=== PATIENT | male | born 1950 | race Caucasian/White ===

== ENCOUNTER → 2025-03-13 12:46 | Outpatient (REF) | payer MEDICARE, OTHER, SELFPAY ==
[2025-03-13 13:55] LABS: Hematocrit 39.9 % (39.0-52.0); Hemoglobin 14.0 g/dL (13.0-18.0); Mean Corp Hgb Conc. 35.1 g/dL (33.0-37.0); Mean Corpuscular Volume 86.2 fL (80.0-94.0); Nucleated Red Blood Cells % 0 % (-); Platelet Count 204 10^3/uL (130-400); Red Cell Dist. Width 13.2 % (11.5-14.5)
[2025-03-13 14:07] LABS: INR 1.25; PT 16.2 Sec (11.4-14.6)
[2025-03-13 15:32] LABS: ALT (SGPT) 35 U/L (0-50); AST (SGOT) 25 U/L (17-59); Albumin 4.5 g/dl (3.5-5.0); Alkaline Phosphatase 80 U/L (38-126); Blood Urea Nitrogen 15 mg/dl (9-20); Calcium 9.3 mg/dl (8.4-10.2); Carbon Dioxide 26 mmol/L (22-30); Chloride 104 mmol/L (98-107); Glucose 154 mg/dl (70-99); Magnesium 1.7 mg/dl (1.6-2.3); Potassium 4.4 mmol/L (3.5-5.1); Sodium 137 mmol/L (135-145); Total Protein 7.2 g/dl (6.3-8.2); eGFR > 60.00
== END ==
LOC: SDSPAT 12:46
PROVIDERS: ATTENDING PHYSICIAN Internal Medicine Cardiovascular Disease; FAMILY PHYSICIAN Family Medicine; OTHER PHYSICIAN Internal Medicine Cardiovascular Disease
DX: I48.91 Unspecified atrial fibrillation (principal)
CPT/HCPCS: 36415; 75572; 80053; 83735; 85025; 85610; 86850; 86900; 86901; 93005; Q9967

== ENCOUNTER 2025-03-29 05:52 | Day surgery (SDC) | payer MEDICARE, OTHER, SELFPAY ==
[2025-03-13 13:30] VITALS: BMI 41.9
[2025-03-29] VITALS (11 sets, daily range): BP systolic 89–133; BP diastolic 47–92; BMI 41.5
[2025-03-29 06:56] LABS: Glucose - Point of Care 130 mg/dl (70-99)
--- NOTE | 2025-03-29 07:45 | ITS.CL.ABL ---
[employer] - Ablation
Ablation
Procedure Report:
Primary Interface Control Officer: Dr. Talib Bernard
Procedure Date: 03/29/2025
Patient History:
Patient is a pleasant 74-year-old male with a past medical history significant for colonic AVM, anxiety, mixed hyperlipidemia, psoriasis, moderate persistent asthma, sleep apnea on BiPAP, hypertension, and symptomatic persistent atrial fibrillation.
See H&P for complete details.
Indication:
Symptomatic persistent atrial fibrillation
Arrhythmia Specific History:
Prior Medical Therapies for Rate and Rhythm Control:
X Beta-chano
[ ] Calcium channel-chano
[ ] Amiodarone
[ ] Dronederone
[ ] Sotalol
[ ] Flecainide
[ ] Dofetilide
[ ] Options limited by bradycardia
[ ] Options limited by comorbid renal disease
Prior Procedural Therapies for AF/AFL:
X Cardioversion
[ ] Pulmonary Vein Isolation
[ ] Posterior Wall Isolation
[ ] Additional lines (Specify)
[ ] Surgical Soto-MAZE or PVI (Specify)
Procedure Performed:
X AF ablation procedure (55771) -- includes LA/CS pacing, trans-septal, 3D mapping, + ICE
[ ] +IV drug (27384)
[ ] +Other Arrhythmia (95398)
X +Other AF Line/ablation (05098)x2 -- floor line roof line, posterior wall isolation
Risks and expected recovery has been explained in detail. Alternative options have been explored, and in a shared-decision making fashion we have decided that this was the most appropriate procedure.
Method
NPO status confirmed. Grounding pad applied. Defibrillator pads applied. Continuous surface ECG, pulse oximetry, and blood pressure were monitored. Procedure was performed under general anesthesia, with anesthesia services.
Both groins were clipped, prepped with Chloraprep, and draped in sterile fashion. Time out was called. Local anesthesia administered with bupivacaine. The right femoral vein was accessed for catheter placement, using ultrasound guidance (images
saved to record), micro-puncture needle/wire, and modified seldinger technique. 3 sheaths were placed. The following catheters were used:
[ ] Tacticath SE (D/F Curve) ablation catheter
X Viewflex 9Fr ICE catheter
X Inquiry decapolar 6Fr diagnostic catheter
[ ] CRD Hex 6Fr
X FlexCath Contour 10 Fr with PulseSelect PFA Catheter
X Advisor HD Grid Mapping Catheter, SE
[ ] AcusHomeSav AcuNav 8 Fr ICE catheter
[ ]Other: [ ]
Intracardiac ultrasound (ICE) was carefully advanced into the right atrium to guide sheath placement over a J-wire, catheter placement, guide trans-septal puncture, identify potential complications, identify anatomic structures and ensure proper
contact between ablation catheter and tissue. A trace basal LV pericardial effusion was noted on intracardiac ultrasound at the initiation of procedure. This remained unchanged throughout the procedure and a case completion.
Heparin was given prior to trans-septal puncture. Heparin was given to achieve and maintain a target ACT of 300-400 seconds throughout the procedure.
Trans-septal access was performed under ICE guidance. The trans-septal puncture was performed with a SafeSept wire through a Brockenbrough needle assembly through the steerable sheath. The wire was visualized as it entered the LSPV and system
advanced under ICE guidance and fluoroscopy into the LA. The Brockenbrough needle assembly, SafeSept wire and sheath dilator were removed under negative pressure. LA pressure was measured and recorded.
ICE and 3D mapping was performed to identify relevant cardiac structures. A careful 3D map was created to assess for regions of low-voltage and abnormal electrogram signals using HD grid mapping catheter and PulseSelect catheter. Additional mapping
was performed as outlined below.
Prior to ablation, glycopyrrolate was provided. PulseSelect catheter was advanced over J-wire to the ostium of each vein. Pulmonary vein isolation was performed with ostial and antral lesions in a circumferential manner. Contact was visualized via
EAM, ICE, fluoroscopy, and EGM signals.
After accomplishing pulmonary venous isolation, mapping identified additional areas likely to be extra PV contributors to atrial fibrillation. These areas demonstrated patchy low voltage as well as complex fractionated electrograms. These areas can
be sites for the formation of rotors which can drive and maintain atrial fibrillation. These areas are known to be significant contributors to initiation and perpetuation of atrial fibrillation.
Additional energy applications/additional ablation sets targeted extra PV contributors to atrial fibrillation.
Targets for additional PFA ablation included: LA posterior wall targeted with pulsed electric field energy isolating the posterior wall of the left atrium. Posterior wall isolation was performed by anchoring the J-wire within the pulmonary vein and
placing the PulseSelect catheter in contact posterior wall as visualized by aforementioned methods.
After ablation of the posterior wall, targets remained including:
- Inferior LA floor
- Anterior LA roof
- The ridge of tissue between the left atrial appendage and the left sided pulmonary veins (Ligament of [place])
These areas were ablated using pulsed electric field energy eliminating the extra PV contributors to atrial fibrillation.
Following completion of ablation lesions, sinus rhythm was restored with a 200J synchronized DCCV. Following cardioversion, patient was noted to be in atrial flutter 270 ms cycle length appearing left atrial in nature. Attempted entrainment
terminated the tachycardia. No further arrhythmias induced with electrophysiology study. A post-ablation voltage/activation map was performed in sinus rhythm. Entrance and exit block were confirmed for each vein and the posterior wall.
Catheter and sheath were removed from the left atrium and post-ablation intracardiac echo evaluation was consistent with pre-ablation with no changes and no change to trace basal LV Pericardial effusion and there is no left atrial thrombus or left
ventricle thrombus seen. Electrophysiology study was performed. No arrhythmias were induced. Hemostasis was obtained with Vascade for each sheath and with manual pressure. Protamine was used for reversal.
Estimated Blood Loss
10 mL
Complications
None
Fluoroscopy: 3.3 minutes; 43.92 mGy; DAP 4.58
LA Pressure: Pre 8 mmHg, post 13 mmHg
Baseline Intervals:
Rhythm: AF
QRS: 81 ms
Post-Procedure Intervals:
UT: 170 ms
QRS: 85 ms
QT: 412 ms
QTc: 407 ms
A-A: 1024 ms
R-R: 1024 ms
AVWB: 350 ms
AVNERP: 600/210 ms
AERP: 600/210 ms
Recommendations
- Bedrest with straight-leg precautions as ordered
- Anticipate same day discharge if patient meeting clinical metrics
- Resume home medications as indicated
- Ok to resume anticoagulation tonight if patient and groin sites stable
- Plan for follow-up in office as scheduled
Lino Stark, , FACC, FHRS
Clinical Cardiac Graduate Fellow
cc: Dr. Talib Bernard; Dr. Lucia Jones
[2025-03-29 08:58] LABS: ACT-LR - POC 355 Seconds (116-155)
[2025-03-29 09:16] LABS: ACT-LR - POC 339 Seconds (116-155)
[2025-03-29 09:43] LABS: ACT-LR - POC 390 Seconds (116-155)
[2025-03-29 10:15] LABS: ACT-LR - POC 284 Seconds (116-155)
--- NOTE | 2025-03-29 13:19 | W.PN.UPDATE ---
Update Note
Progress Note Update
74 yo WM s/p PVI (same day). He denies cp, sob, jack diet, voiding, R fem site Vascade c/d/i, no HT, soft, EKG SR with PAC's. He will resume Eliquis tonight and continue metoprolol. Activity restrictions reviewed. He will f/u Dr. Bernard in 3 mo. He
is for d/c home after 115p.
== END 2025-03-29 13:15 | disposition home or self-care (01) ==
LOC: CATH 05:52
PROVIDERS: ATTENDING PHYSICIAN Internal Medicine Cardiovascular Disease; FAMILY PHYSICIAN Family Medicine; OTHER PHYSICIAN Internal Medicine Cardiovascular Disease
DX: I48.19 Other persistent atrial fibrillation (principal); E11.9 Type 2 diabetes mellitus without complications; E78.2 Mixed hyperlipidemia; F32.A Depression, unspecified; F41.9 Anxiety disorder, unspecified; G25.0 Essential tremor; G47.33 Obstructive sleep apnea (adult) (pediatric); I11.0 Hypertensive heart disease with heart failure; I25.10 Atherosclerotic heart disease of native coronary artery without angina pectoris; I49.1 Atrial premature depolarization; I50.32 Chronic diastolic (congestive) heart failure; J45.40 Moderate persistent asthma, uncomplicated; K76.0 Fatty (change of) liver, not elsewhere classified; M19.90 Unspecified osteoarthritis, unspecified site; M85.80 Other specified disorders of bone density and structure, unspecified site; Z79.01 Long term (current) use of anticoagulants; Z79.899 Other long term (current) drug therapy; Z86.0100 Personal history of colon polyps, unspecified; Z86.711 Personal history of pulmonary embolism; Z87.442 Personal history of urinary calculi; Z88.1 Allergy status to other antibiotic agents; Z88.5 Allergy status to narcotic agent; Z88.8 Allergy status to other drugs, medicaments and biological substances; Z90.49 Acquired absence of other specified parts of digestive tract; Z90.79 Acquired absence of other genital organ(s); Z98.42 Cataract extraction status, left eye; E66.01 Morbid (severe) obesity due to excess calories; Z68.41 Body mass index [BMI] 40.0-44.9, adult; Z96.652 Presence of left artificial knee joint; Z91.041 Radiographic dye allergy status; Z91.030 Bee allergy status
CPT/HCPCS: C1732; C1894 ×2; C1730; C1769; C1766; 82962; 85347; 86900; 86901; 93005; 93656; 93657; C1760

== ENCOUNTER 2025-03-31 20:55 | Inpatient (IN) | payer MEDICARE, OTHER, SELFPAY ==
[2025-03-31] VITALS (10 sets, daily range): BP systolic 98–133; BP diastolic 58–72; PULSE 2–62; BMI 42.6; BMI 41.2
[2025-03-31 18:57] LABS: Hematocrit 34.7 % (39.0-52.0); Hemoglobin 11.7 g/dL (13.0-18.0); Mean Corp Hgb Conc. 33.7 g/dL (33.0-37.0); Mean Corpuscular Volume 90.4 fL (80.0-94.0); Nucleated Red Blood Cells % 0 % (-); Platelet Count 170 10^3/uL (130-400); Red Cell Dist. Width 14.1 % (11.5-14.5)
[2025-03-31 19:10] LABS: ALT (SGPT) 24 U/L (0-50); AST (SGOT) 33 U/L (17-59); Albumin 4.0 g/dl (3.5-5.0); Alkaline Phosphatase 73 U/L (38-126); Blood Urea Nitrogen 19 mg/dl (9-20); Calcium 8.8 mg/dl (8.4-10.2); Carbon Dioxide 28 mmol/L (22-30); Chloride 105 mmol/L (98-107); Estimated Creatinine Clearance 108 ml/min; Glucose 126 mg/dl (70-99); Potassium 4.0 mmol/L (3.5-5.1); Sodium 138 mmol/L (135-145); Total Protein 6.3 g/dl (6.3-8.2); eGFR > 60.00
[2025-03-31 19:26] LABS: Troponin I 1.810 ng/ml
--- NOTE | 2025-03-31 19:50 | ED.GENMED ---
History of Present Illness
General
Chief Complaint: Chest Pain
Time Seen by Provider: 03/31/25 19:36
Nursing documentation reviewed up to this point in time: agreed with
History of Present Illness
History of Present Illness:
74-year-old male presents to the ER for evaluation of chest pain and shortness of breath with exertion that has been present since yesterday. Patient underwent ablation on 03/29/2025 for treatment of atrial fibrillation. He states a feeling of
difficulty taking a deep breath. He does use nebulizers for his prior history of asthma but has not used this medication since this morning. He has not had his Eliquis since this morning. He denies nausea vomiting or diarrhea. He does report
some mild abdominal bloating but has been having regular bowel movements. He denies any urinary discomforts. Patient reports that the pressure is worse with exertion. He also has had a cough which is scantly productive. No fever. He has not
tried taking any medications for his symptoms.
Review of Systems
Review of Systems
Allergies reviewed?: Yes
Phy Exam
Physical Exam
Physical Exam:
Patient is awake, alert, appears in no acute distress, obese, head is NCAT, PERRL, EOMI mucous membranes moist, conjunctiva pink, heart regular rate and rhythm without murmurs or ectopy, lungs are clear to auscultation without wheezes rales or
rhonchi, no JVD, abdomen is soft and nontender on palpation, extremities without edema, GCS is 15
Scores
Heart Score for Chest Pain Patients
STEMI patient?: No
History: Slightly or Non-Suspicious
ECG: Normal
Age: >/= 65 years
Risk Factors: >/= 3 Risk Factors or History of CAD
Troponin: >/= 3 x Normal Limit
Heart Score for Chest Pain Patients: 6
Heart Score Risk: 20.3% MACE over next 6 weeks
Course
Orders/Labs/Results
Orders:
Orders
03/31/25 Breakfast
Sodium, 2 Gram
At Your Request: Full Participation
Does patient need a safe tray?: No
Low Sodium: Cholesterol Lowering
03/31/25 17:14
Electrocardiogram (*1) Urgent
Reason for Study: Chest Pain
EKG- Treatment ONCE
03/31/25 18:40
CXR2 [CR Chest - 2 Views ] Urgent
Comment:
Reason For Exam: chest pain
03/31/25 18:48
Complete Blood Count/With Diff Urgent
Comprehensive Metabolic Panel Urgent
Ferritin Urgent
Comment: ADD ON
Folate Urgent
Comment: ADD ON
Iron Urgent
Comment: ADD ON
NT-proBNP Urgent
Total Iron Binding Urgent
Comment: ADD ON
Troponin I Urgent
Vitamin B12 Urgent
Comment: ADD ON
03/31/25 19:43
Heparin 4,000 units IV NOW STA
Ipratropium/Albuterol Sulfate [Duoneb] 3 ml INH R NOW ONE
Nursing to Place Non Medication Order As Directed
Physician Order: PTT 6 hours after initial start of Heparin infusion
Above order entered?: Yes
03/31/25 19:45
Heparin 96614 Units/250 ml 25,000 units in 250 ml IV PER PROTOCOL
Weight to be used for heparin protocol in kilograms (kg):: 128.7
Protocol:: Cardiac Tx/Acute Coronary
PTT Goal Range to be used:: PTT 73 to 111 seconds
Order type:: Initial
INITIAL Infusion Dose (UNITS/KG/hr) & then follow protocol:: 12 units/kg/hr
Infusion Dose in UNITS/hr & then follow protocol (UNITS/hr):: 1,000
INFUSION RATE in mL/hr & then follow protocol (mL/hr):: 10
PTT less than or equal to 64 seconds:: Increase rate by 200 units/hr (+ 2 mL/hr)
PTT 64.1 to 72.9 seconds:: Increase rate by 100 units/hr (+ 1 mL/hr)
PTT 73 to 111 seconds:: Target Range. No change in rate.
PTT 111.1 to 130.9 seconds:: Decrease rate by 100 units/hr (- 1 mL/hr)
PTT 131 to 199.9 seconds:: HOLD for 1 hr. Then decrease rate by 200 units/hr (- 2 mL/hr)
PTT greater than or equal to 200 seconds:: HOLD for 2 hrs & Notify Provider. Then decrease by 200 units/hr (-
2 mL/hr)
Lab follow-up:: Each change, PTT q6h until 2 consecutive are therapeutic. Then PTT
daily.
03/31/25 19:57
PTT Urgent
03/31/25 20:32
Consult Cardiology [CARDIOLOGY CONSULT] Urgent
Consulting Provider: Filiberto Guadarrama
Was physician already notified: Yes
03/31/25 20:39
Admit/Transfer Patient As Directed
Co-Sign Provider:
Level of Care: Inpatient admission
Assign to:: IVU
Physician / Group: Shiva
Diagnosis: NSTEMI
Reason for Hospitalization: heparin drip
Expected length of stay greater than two midnights?: Yes
ELOS- Estimated Length of Stay in days: 3
I certify the patient meets the requirements for IP care: Yes
PRN Pain Medication Management As Directed
May give lesser potent ordered pain med per pt: Yes
preference::
Protocol:: Medication orders for pain may be administered in a
manner that supports deferring to patient preference
when the pt is:
- Requesting an ordered lesser potent pain medication.
Least to most potent pain medications are defined
as: acetaminophen < NSAID < tramadol < opioids
(morphine, oxycodone, hydromorphone).
- Requesting a lesser dose of the same medication IF
ORDERED.
- Requesting a less intrusive route of administration
if both routes are prescribed by the provider (PO <
IV).
03/31/25 20:43
Code Status As Directed
Resuscitation Status: Full Code
03/31/25 22:06
COVID-19 Antigen Urgent
Source: Nasal Swab
Troponin I Q6H
03/31/25 22:34
Acetaminophen [Tylenol] 650 mg PO Q4HPRN PRN
Montelukast Sodium [Singulair] 10 mg PO HS
Nitroglycerin Sublingual [Nitrostat (Sublingual)] 0.4 mg SL [id number] PRN
03/31/25 22:34
Echo 2D MMode Color/Doppler Routine
Reason for Study: chest pain
Heparin Protocol- PTT Orders As Directed
PTT per Heparin protocol: -Obtain CBC and baseline PTT - if not already collected.
-Obtain PTT 6 hours from start of infusion. Then, every 6 hours until 2 consecutive
PTT's are therapeutic. Then, PTT Daily.
-With each rate change, obtain PTT every 6 hours until 2 consecutive PTT's are
therapeutic. Then, PTT Daily.
Activity As Directed
Activity Level: Out of Bed-Early Mobility
With Assistance
I&O [Intake/ Output] As Directed
Frequency: q12h
Notify MD As Directed
Notify physician if: PTT is greater than or equal to 200.
Vital Signs As Directed
Frequency: Per unit guidelines
Weight As Directed
Frequency: Daily
04/01/25 02:25
PTT Urgent
04/01/25 03:50
Troponin I Q6H
04/01/25 Breakfast
NPO
Allow oral meds: Yes
Allow clear liquids: 4hrs prior to procedure
Comment: may have unrestricted clear liquid up to 4 hrs prior to scheduled procedure
Basic Metabolic Panel IN AM
Complete Blood Count/No Diff IN AM
Hgba1c [Glycohemoglobin (HgbA1c)] IN AM
Lipid Profile [Cardiovascular Evaluation] IN AM
04/01/25 08:00
Albuterol Nebs [Ventolin Nebules] 2.5 mg INH R QID
Budesonide [Pulmicort] 0.5 mg INH BID
Metoprolol Xl [Toprol Xl] 50 mg PO DAILY
Pantoprazole [Protonix] 40 mg PO DAILY
Sertraline HCl [Zoloft] 75 mg PO DAILY
Tiotropium [place] 2.5 Mcg [Spiriva Respimat 2.5 Mcg] 2 puff INH R DAILY
04/01/25 09:50
Troponin I Q6H
04/01/25 18:00
Atorvastatin [Lipitor] 20 mg PO QPM
04/02/25 06:00
Complete Blood Count/No Diff Q2D
Comment: notify provider: Platelet count < 130,000 or decrease by 50% from baseline
04/02/25 11:00
DC Protocol for Telemetry ONCE
04/04/25 06:00
Complete Blood Count/No Diff Q2D
Comment: notify provider: Platelet count < 130,000 or decrease by 50% from baseline
04/06/25 06:00
Complete Blood Count/No Diff Q2D
Comment: notify provider: Platelet count < 130,000 or decrease by 50% from baseline
04/08/25 06:00
Complete Blood Count/No Diff Q2D
Comment: notify provider: Platelet count < 130,000 or decrease by 50% from baseline
04/10/25 06:00
Complete Blood Count/No Diff Q2D
Comment: notify provider: Platelet count < 130,000 or decrease by 50% from baseline
04/12/25 06:00
Complete Blood Count/No Diff Q2D
Comment: notify provider: Platelet count < 130,000 or decrease by 50% from baseline
04/14/25 06:00
Complete Blood Count/No Diff Q2D
Comment: notify provider: Platelet count < 130,000 or decrease by 50% from baseline
04/16/25 06:00
Complete Blood Count/No Diff Q2D
Comment: notify provider: Platelet count < 130,000 or decrease by 50% from baseline
Abnormal Lab Results
03/31/25
18:48
RBC 3.84 L 10^6/uL
(4.70-6.10)
Hgb 11.7 L g/dL
(13.0-18.0)
Hct 34.7 L %
(39.0-52.0)
Abs Immat Gran (auto) 0.1 H 10^3/uL
(0-0.05)
Absolute Neuts (auto) 7.7 H 10^3/uL
(1.4-6.5)
Absolute Lymphs (auto) 1.1 L 10^3/uL
(1.2-3.4)
Absolute Monos (auto) 1.1 H 10^3/uL
(0.1-0.6)
Neutrophils % 76.3 H %
(42.2-75.2)
Lymphocytes % 11.0 L %
(20.5-51.1)
Monocytes % 10.5 H %
(1.7-9.3)
Glucose 126 H mg/dl
(70-99)
Iron 34 L ug/dl
(49-181)
% Saturation 10 L %
(20-50)
Total Bilirubin 2.0 H mg/dl
(0.2-1.3)
Troponin I 1.810 H* ng/ml
03/31/25 18:48
03/31/25 18:48
Electrolytes within normal limits. Hemoglobin slightly decreased compared to prior value of 14 from 03/13/2025. White blood count normal. Troponin elevated at 1.8
Vital Signs
Initial and Last Documented VS:
Initial Vital Signs
Temp Pulse Resp BP Pulse Ox
98.2 F 62 16 133/72 97
03/31/25 17:13 03/31/25 17:13 03/31/25 17:13 03/31/25 17:13 03/31/25 17:13
Last Documented Vital Signs
Temp Pulse Resp BP Pulse Ox
97.7 F 67 18 108/60 95
03/31/25 22:50 03/31/25 22:08 03/31/25 22:50 03/31/25 22:08 03/31/25 23:15
MDM/Problems Addressed
Differential Diagnosis Includes:
Differential diagnosis to consider but not limited to postprocedural discomfort, ACS, along with other etiologies considered
Chronic conditions affecting care:
Asthma, A-fib,Hyperlipidemia, hypertension
*Radiology
Radiology exam reviewed: preliminary read by ED provider (I independently viewed and interpreted two-view chest x-ray showing no infiltrates, top normal cardiac silhouette)
*Pulse Oximetry
SaO2: 95
Oxygen Mode of Delivery: Room air
Patient hypoxic: no
*EKG
Interpreted by ED Provider?: Yes (I independently viewed and interpreted twelve-lead EKG showing normal sinus rhythm, no ectopy, rate 65, leftward axis, no ST elevation, this is a borderline low voltage EKG without evidence for acute ischemia
similar compared to prior from 03/29/2025)
*Automatic Dispenser Mechanic Interpretation
Rate: normal (I independently viewed and interpreted rhythm strip showing normal sinus rhythm, no ectopy)
*Critical Care Note
Total Time (30-74mins, 75-104mins- exclusive of procedures): See critical care note
Update Note
Update Note:
I discussed with patient and present bedside need for admission for anticoagulation and trending of troponin, although troponin is likely related to recent procedure. Procedure had been performed by Dr. Lou. I reviewed full patient
presentation and EKG with on-call beer brewer for the group, Dr. Guadarrama, who would agree with plan for anticoagulation and admission to the hospitalist. I reviewed full patient presentation with the hospitalist who accepts patient for admission.
Critical care statement: A total of 30 minutes of critical care time was provided for this patient. This includes management of unstable vital signs, evaluation of the patient at bedside, reviewing the patient's pertinent medical records, discussion
with consultants, review of old EKGs and review of pertinent medical records. This time with separate from time utilized to perform the aforementioned documented procedures
ED Attending Note
-
Portions of this chart may have been created with voice recognition software.� Occasional wrong word or��sound alike� substitutions may have occurred due to the inherent limitations of voice recognition software.
Discharge Plan
Departure
Patient Disposition: Admit
Date of Disposition: 03/31/25
Time of Disposition: 20:31
Presentation/result/management discussed w/ accepting MD/DO: Hospitalist
Discharge Problem:
Chest pain, Elevated troponin I level
Interventions
Interventions:
*Risk Screen - Suicide Last Done: 03/31/25 17:13
*General Assessment Last Done: 03/31/25 18:32
*Neglect/Abuse Screening Last Done: 03/31/25 17:13
*ED- Fall Risk Assessment Last Done: 03/31/25 18:32
*ED COVID-19 Vaccine History Last Done: 03/31/25 18:32
*Nursing Disposition Last Done: 03/31/25 22:19
ED- Cardiac Assessment Last Done: 03/31/25 18:36
Discharge Date and Time
Discharge Date/Time: 03/31/25 22:20
[2025-03-31] MEDS: DUONEB 3 ML INH (20:05)
[2025-03-31 20:19] LABS: APTT 32.9 Sec (23.4-35.0)
[2025-03-31] MEDS: HEPARIN 25000 UNITS/250 ML IV (20:22)
[2025-03-31] MEDS: HEPARIN 4000 UNITS IV (20:22)
--- NOTE | 2025-03-31 20:46 | HPS.HSE ---
Addendum entered and electronically signed by Ashok Shannon DO 03/31/25 21:51:
Patient seen and examined independently. Agree with findings and plan as set forth by Kathe Hinton PA-C.
Patient is a 74y M with PMH significant for hypertension, DM-II, asthma and A-Fib s/p recent PVI ablation who presents to ED complaining of chest pain / pressure and SOB. Ablation done on 03/29. Patient reports some chest heaviness yesterday -
but much worse today. Patient denies any prior h/o FL, CVA, etc.
He denies any recent cough, fevers / chills, etc.
Ass:
Chest Pain / ACS / NSTEMI
Atrial Fibrillation s/p Ablation (03/29)
Chronic HFpEF
Normocytic Anemia
Benign Hypertension - Currently Hypotensive
DM-II
Asthma
Anxiety / Depression
Morbid Obesity due to excess calories
CHANEL on BiPAP
Plan:
Admit for further evaluation and treatment.
EKG without evident ischemia.
Initial troponin = 1.810 - s/p PVI ablation 2 days ago.
Continue IV heparin infusion.
ASA 324mg now and then daily.
Follow troponin to peak.
Follow for changes in chest heaviness symptoms.
Cardiology evaluation for additional recommendations.
Continue usual inhaled medication regimen.
Continue usual Lasix dose for now, but change to IV.
Follow I/Os, daily weights, etc.
Hold losartan acutely given borderline BP.
Continue nightly BiPAP.
Original Note:
Family Physician
-
Family Physician: NOT KNOW UNKNOWN - PT DOES
Chief Complaint
-
Chest Tightness and Shortness of Breath
History of Present Illness
Patient is a 74 y/o male past medical history of essential hypertension, hyperlipemia, diabetes mellitus, asthma, chronic heart failure, and atrial fibrillation with PVI ablation on Mar 29 who presents with chest tightness and shortness of
breath. Patient states following the procedure he was doing fairly well except for feeling a little groggy. The next morning, yesterday, he developed chest tightness across the middle of his chest. He reports the chest tightness and pressure have
gotten progressively worse. He reports associated shortness of breath particularly dyspnea on exertion. He denies lower extremity edema.
Medical History
Past Medical History
Past Medical History: Reports Other
Additional Past Medical History:
Paroxysmal Atrial Fibrillation
Chronic HFpEF
Diabetes Mellitus, Type II
Essential Hypertension
Hyperlipidemia
Asthma / Reactive Airway Disease
Pulmonary Embolism
Anxiety / Depression
GERD
Gilbert's
Prostate Cancer
Obstructive Sleep Apnea
Morbid Obesity due to Excess Calories
Past Surgical History: Reports Other
Additional Past Surgical History:
Left Knee Replacement
Right Ankle ORIF
Prostatectomy
Social History
Tobacco: Non-smoker
Alcohol: None
Drug: None
Family History
Family History: Not pertinent
Allergies / Home Medications
Allergies reflects when Allergies were last updated in [facility].
Home Medications with original date entered in [facility]
Allergy/Medication List:
Allergies
Allergy/AdvReac Type Severity Reaction Status Date / Time
codeine Allergy Severe CHEST Verified 03/31/25 18:32
PAIN/
FL-LIKE/CARDIAC
SYMPTOMS
erythromycin base Allergy Severe RENAL Verified 03/31/25 18:32
FAILURE/SEVERE
N/V
Iodinated Contrast Media Allergy Severe Hives Verified 03/31/25 18:32
adhesive Allergy BLISTERS Verified 03/31/25 18:32
bee venom protein (honey bee) Allergy EDEMA Verified 03/31/25 18:32
levofloxacin Allergy PRURITUS Verified 03/31/25 18:32
Opioids - Morphine Analogues Allergy CHEST Verified 03/31/25 18:32
PAIN/FL-LIKE/CARDIAC
SYMPTOMS
Home Medications
amoxicillin 500 mg capsule 2,000 mg PO PRN PRN PRE-DENTAL VISIT 03/08/25
apixaban 5 mg tablet (Eliquis) 5 mg PO BID 03/08/25
arformoterol 15 mcg/2 mL solution for nebulization 15 mcg inhalation BID 03/08/25
atorvastatin 20 mg tablet 20 mg PO QPM 03/08/25
budesonide 0.5 mg/2 mL suspension for nebulization 0.5 mg inhalation BID 03/08/25
calcium 600 mg (as carbonate)-vitamin D3 20 mcg (800 unit) tablet 1 tab PO DAILY 03/08/25
furosemide 20 mg tablet (Lasix) 20 mg PO DAILY 03/08/25
losartan 25 mg tablet 25 mg PO DAILY 03/08/25
mecobalamin (vitamin B12) 1,000 mcg chewable tablet 1,000 mcg PO DAILY 03/08/25
metoprolol succinate 50 mg tablet,extended release 24 hr 50 mg PO DAILY 03/08/25
montelukast 10 mg tablet 10 mg PO HS 03/08/25
multivit,Ca,min-iron 8 mg-folic acid 200 mcg-lycopene 600 mcg tablet (Men's Daily Multivitamin) 1 tab PO DAILY 03/08/25
pantoprazole 40 mg tablet,delayed release 40 mg PO DAILY 03/08/25
revefenacin 175 mcg/3 mL solution for nebulization (Yupelri) 175 mcg inhalation DAILY 03/08/25
sertraline 50 mg tablet 75 mg PO DAILY 03/08/25
tadalafil 20 mg tablet (Cialis) 20 mg PO DAILYPRN PRN ED 03/08/25
Review of Systems
-
A 12 point ROS was completed and negative except as noted: Yes
Constitutional: Denies Fever
Respiratory: Reports Trouble Breathing
Cardiac: Reports Chest Pain
Physical Exam
Vital Signs
Vital Signs
Temp Pulse Resp BP Pulse Ox
98.8 F 67 25 104/64 95
03/31/25 18:36 03/31/25 20:30 03/31/25 20:30 03/31/25 20:00 03/31/25 20:30
Physical Exam
General: Comfortable and Conversant
HEENT: Anicteric and Moist mucous membranes
Respiratory: Clear and Non Labored Respirations
Cardiac: S1/S2 and Regular Rhythm
GI: Soft and Non Tender
Rectal: Deferred by Provider
Musculoskeletal: No Clubbing, No Cyanosis and Other (Trace edema left lower extremity which patient reports is chronic for many years)
Skin: Warm and Dry
Neuro: Awake, Alert, Oriented and Nonfocal/grossly intact
Psych: Calm
Laboratory Results
-
03/31/25 18:48
03/31/25 18:48
Laboratory Results
APTT 32.9 Sec (23.4-35.0) 03/31/25 19:57
Total Bilirubin 2.0 mg/dl (0.2-1.3) H 03/31/25 18:48
AST 33 U/L (17-59) 03/31/25 18:48
ALT 24 U/L (0-50) 03/31/25 18:48
Alkaline Phosphatase 73 U/L (38-126) 03/31/25 18:48
Troponin I 1.810 ng/ml H* 03/31/25 18:48
Data Reviewed
-
Lab Data: Labs Reviewed by me
Impression/Plan
-
Chest Pain / Shortness of Breath with Elevated Troponin concerning for NSTEMI
-Consult Cardiology
-Continue to trend troponin
-Continue heparin drip
-Continue aspirin
Normocytic Anemia
-Hgb dropped from 14 earlier this month to 11.7
-Check iron studies
-Heme-test stools
-Trend serial Hgb
Paroxysmal Atrial Fibrillation s/p PVI Ablation on Mar 29
-Continue metoprolol for rate control
-Currently on heparin drip
Chronic HFpEF
-Continue Lasix
-Monitor Is&Os and Daily Weights
Diabetes Mellitus, Type II - Diet Controlled
-Check HgbA1c
-Monitor sugars and continue coverage insulin
Essential Hypertension
-Hold losartan as BP is running on the low side
Hyperlipidemia
-Continue atorvastatin
Asthma / Reactive Airway Disease
-Continue arformoterol, budesonide and Yupelri
Anxiety / Depression
-Continue sertraline
Obstructive Sleep Apnea
-Continue BiPAP
Morbid Obesity due to Excess Calories
-Affects all aspects of care
DVT Proph: Heparin Drip
Code Status: Full Code
[2025-03-31 21:45] LABS: Iron 34 ug/dl (49-181)
[2025-03-31 21:54] LABS: Total Iron Binding Capacity 314 ug/dl (261-462)
[2025-03-31] MEDS: LOW STRENGTH ASPIRIN 324 MG PO (21:57)
[2025-03-31 22:28] LABS: COVID-19 Antigen Negative (Negative)
[2025-03-31 22:40] LABS: Troponin I 1.750 ng/ml
[2025-03-31 22:41] LABS: Glucose - Point of Care 121 mg/dl (70-99)
[2025-03-31] MEDS: SINGULAIR 10 MG PO (22:56)
[2025-03-31 23:25] LABS: Ferritin 38.9 ng/ml (17.9-464.0)
--- NOTE | 2025-03-31 23:38 | PTCARENOTE ---
Received patient from ED, report from Lisa. SR on the monitor, HR in the 60s. Chest tightness with movement. Alert and oriented. 95% on RA, CPAP HS. Heparin running as per protocol, see documentation. Oriented pt to room and plan of care, pt
verbalizes understanding. NPO at midnight. No complaints from pt at this time, call franco within reach.
[2025-03-31 23:56] LABS: Folate 16.7 ng/ml (2.76-20)
[2025-03-31 23:57] LABS: Vitamin B12 579 pg/ml (239-931)
[2025-04-01] VITALS (7 sets, daily range): BP systolic 113–135; BP diastolic 62–74; PULSE 2; BMI 41.3
[2025-04-01 03:08] LABS: Hematocrit 31.4 % (39.0-52.0); Hemoglobin 10.8 g/dL (13.0-18.0); Mean Corp Hgb Conc. 34.4 g/dL (33.0-37.0); Mean Corpuscular Volume 89.5 fL (80.0-94.0); Platelet Count 149 10^3/uL (130-400); Red Cell Dist. Width 14.0 % (11.5-14.5)
[2025-04-01 03:18] LABS: APTT 54.5 Sec (23.4-35.0)
[2025-04-01 03:34] LABS: Blood Urea Nitrogen 16 mg/dl (9-20); Calcium 8.4 mg/dl (8.4-10.2); Carbon Dioxide 25 mmol/L (22-30); Chloride 107 mmol/L (98-107); Estimated Creatinine Clearance 108 ml/min; Glucose 111 mg/dl (70-99); HDL Cholesterol 44 mg/dl; LDL Cholesterol, Calculated 63 mg/dl; Magnesium 1.8 mg/dl (1.6-2.3); Potassium 3.5 mmol/L (3.5-5.1); Sodium 137 mmol/L (135-145); Very Low Density Lipoprotein 23 mg/dl (0-30); eGFR > 60.00
[2025-04-01 03:50] LABS: Troponin I 1.300 ng/ml
[2025-04-01] MEDS: MAGNESIUM OXIDE 400 MG PO (04:47)
[2025-04-01] MEDS: KCL 40 MEQ PO (04:47)
[2025-04-01] MEDS: PULMICORT 0.5 MG INH ×2 (07:17→20:36)
[2025-04-01] MEDS: VENTOLIN NEBULES 2.5 MG INH ×4 (07:17→20:36)
[2025-04-01] MEDS: SPIRIVA RESPIMAT 2.5 MCG 2 PUFF INH (07:18)
--- NOTE | 2025-04-01 07:49 | CON.CAR ---
Addendum entered and electronically signed by Lino Stark DO 04/01/25 11:39:
I saw and examined the patient.
The Theatrical Agent's note was reviewed and I agree with the note.
Comment:
Patient presenting with chest discomfort with deep inspiration. Additionally, noted persistent shortness of breath. Patient reported that the chest discomfort is a tightness sensation with deep inspiration without aggravating or alleviating
features. He notes that the chest pain does not occur with activity or exertion. Patient notes some abdominal fullness and shortness of breath with activity and exertion which is chronic for him but a little worse than normal. Initial chest x-ray
imaging shows mild diffuse interstitial prominence which may represent edema versus pneumonitis with trace pleural effusions and possibility of chronic interstitial lung disease. Patient is initial BNP is 345 which may be falsely low due to
obesity. Troponin elevated at 1.8 but downtrending. This is likely in the setting of patient's recent pulsed field ablation for AF. Patient remains in sinus rhythm by EKG. Telemetry demonstrating sinus rhythm. Patient reporting adherence to all
medications.
GENERAL: no acute distress, obese
EYE: sclera anicteric
NECK: Supple, no JVD, no carotid bruit appreciated
ENT: normal nose, moist mucosal membranes
CARDIAC: Regular rate and rhythm, +S1/S2, no murmur, rubs, or gallops
CHEST/PULMONARY: Normal effort, bibasilar decreased breath sounds
ABDOMEN: Soft, without focal tenderness or distention
NEUROLOGICAL: Alert and oriented x3
SKIN: Warm and dry, no rash
PSYCH: Normal and appropriate interaction.
A/P as below
Patient's chest pain unlikely to be ACS given presentation and features. Initial troponin elevation likely related to recent pulse field ablation and downtrending. Additionally, no exertional component or EKG changes concerning for myocardial
ischemia. Additionally, this may be related to pericardial inflammation but may also likely be more related to patient's chronic pulmonary disease which may have worsened in the setting of recent anesthesia. In the setting of patient's trace
pleural effusions with mild edema and BNP, would recommend gentle IV diuresis. Additionally, 2D echocardiogram to assess cardiac size, shape, function, and valvular anatomy post ablation. Lastly, would appreciate input by primary service for
management of lung disease going forward. Further recommendations to follow testing
Original Note:
Consultation
Consultation Request
Date/Time Consultation Requested: 03/31/2025
Date/Time Consultation Performed: 04/01/2025
Requesting Provider: Dr. Dipesh Hendrix
Performing Provider: Brie Uribe PA-C for Dr. Stark
Reason for Consultation: Chest pain
Medical History
-
History of Present Illness:
Patient is a 74-year-old male with past medical history significant for hypertension, hyperlipemia, diabetes mellitus, asthma, chronic heart failure, and atrial fibrillation with PVI ablation on Mar 29 who presents with chest pressure/tightness
and shortness of breath. Patient reports he felt good following ablation however on Tuesday developed chest pressure within 24 hours discomfort intensified and had difficulty taking a deep breath and noted feeling more short of breath with walking
up steps. Reports tightness/discomfort is constant. Not worsened with activity. He does admit that he has had chronic dyspnea on exertion but seems a little worse. EKG showed sinus rhythm without ischemic changes. Initial troponin 1.8 then
downward trended. Chest x-ray mild diffuse interstitial prominence may reflect pulmonary interstitial edema and/or pneumonitis. Trace pericardial effusions. Cannot rule out underlying chronic interstitial lung disease. proBNP 345.
Patient continues to chest pressure/tightness worse with taking deep breaths. Not exertional related.
PMH:
Paroxysmal Atrial Fibrillation
s/p PVI Ablation 03/29/2025
Chronic anticoagulation with Eliquis
Chronic HFpEF
Diabetes Mellitus, Type II
Essential Hypertension
Hyperlipidemia
Asthma / Reactive Airway Disease
Pulmonary Embolism
Anxiety / Depression
GERD
Gilbert's
Prostate Cancer
Obstructive Sleep Apnea
Morbid Obesity due to Excess Calories
Past Medical History
Past Medical History: Other (See HPI)
Past Surgical History: Cardiac (PVI Ablation 03/29/2025)
Social History
Tobacco: Non-Smoker
Alcohol: None
Drug: None
Family History
Family History: Diabetes
Allergies / Home Medications
Allergy/AdvReac Type Severity Reaction Status Date / Time
codeine Allergy Severe CHEST Verified 03/31/25 18:32
PAIN/
LA-LIKE/CARDIAC
SYMPTOMS
erythromycin base Allergy Severe RENAL Verified 03/31/25 18:32
FAILURE/SEVERE
N/V
Iodinated Contrast Media Allergy Severe Hives Verified 03/31/25 18:32
adhesive Allergy BLISTERS Verified 03/31/25 18:32
bee venom protein (honey bee) Allergy EDEMA Verified 03/31/25 18:32
levofloxacin Allergy PRURITUS Verified 03/31/25 18:32
Opioids - Morphine Analogues Allergy CHEST Verified 03/31/25 18:32
PAIN/LA-LIKE/CARDIAC
SYMPTOMS
�Medication �Instructions �Recorded �Confirmed �Type
amoxicillin 500 mg capsule 2,000 mg PO PRN PRN PRE-DENTAL 03/08/25 03/31/25 History
VISIT
apixaban 5 mg tablet (Eliquis) 5 mg PO BID 03/08/25 03/31/25 History
arformoterol 15 mcg/2 mL solution 15 mcg inhalation BID 03/08/25 03/31/25 History
for nebulization
atorvastatin 20 mg tablet 20 mg PO QPM 03/08/25 03/31/25 History
budesonide 0.5 mg/2 mL suspension 0.5 mg inhalation BID 03/08/25 03/31/25 History
for nebulization
calcium 600 mg (as 1 tab PO DAILY 03/08/25 03/31/25 History
carbonate)-vitamin D3 20 mcg (800
unit) tablet
furosemide 20 mg tablet (Lasix) 20 mg PO DAILY 03/08/25 03/31/25 History
losartan 25 mg tablet 25 mg PO DAILY 03/08/25 03/31/25 History
mecobalamin (vitamin B12) 1,000 1,000 mcg PO DAILY 03/08/25 03/31/25 History
mcg chewable tablet
metoprolol succinate 50 mg 50 mg PO DAILY 03/08/25 03/31/25 History
tablet,extended release 24 hr
montelukast 10 mg tablet 10 mg PO HS 03/08/25 03/31/25 History
multivit,Ca,min-iron 8 mg-folic 1 tab PO DAILY 03/08/25 03/31/25 History
acid 200 mcg-lycopene 600 mcg
tablet (Men's Daily Multivitamin)
pantoprazole 40 mg tablet,delayed 40 mg PO DAILY 03/08/25 03/31/25 History
release
revefenacin 175 mcg/3 mL solution 175 mcg inhalation DAILY 03/08/25 03/31/25 History
for nebulization (Yupelri)
sertraline 50 mg tablet 75 mg PO DAILY 03/08/25 03/31/25 History
tadalafil 20 mg tablet (Cialis) 20 mg PO DAILYPRN PRN ED 03/08/25 03/31/25 History
Review of Systems
-
History Source: Patient
All other systems: Negative unless noted
Physical Exam
Vital Signs
Temp Pulse Resp BP Pulse Ox
98.2 F 66 18 113/62 97
04/01/25 02:36 04/01/25 07:23 04/01/25 07:23 04/01/25 02:25 04/01/25 07:23
GEN: No distress, awake, Ox3, sitting in bed
HEENT: supple, anicteric, mmm
LUNGS: CTA, no wheezes/rales
CV: Reg, S1/S2, no murmur, rub, gallop
ABD: soft, BS+, NT/ND
EXT: No edema, clubbing cyanosis
NEURO: Gross non-focal
SKIN: No rash, warm, dry, pink
Lab Results
04/01/25 02:34
04/01/25 02:34
Troponin I Cancelled 04/01/25 09:50
Cle-S-Oeoqtmkamnw Pept 345 pg/ml 03/31/25 18:48
Impression / Plan
-
PCP: Paz Jones
Library Technical Assistant: Dr. Bernard
EP: Dr. Stark
Impression:
Presents 03/31/2025 with chest pressure worse with deep breath
ANTON
Abnormal troponin, suspect non-ischemia injury from recent ablation
Paroxysmal Atrial Fibrillation
s/p PVI Ablation 03/29/2025
Chronic anticoagulation with Eliquis
Chronic HFpEF
Diabetes Mellitus, Type II
Essential Hypertension
Hyperlipidemia
Asthma / Reactive Airway Disease
Pulmonary Embolism
Anxiety / Depression
GERD
Gilbert's
Prostate Cancer
Obstructive Sleep Apnea
Morbid Obesity due to Excess Calories
Echo 04/22/2021: EF 50-55%, mod LVH, no significant valve disease
Plan:
-Presents 03/31/2025 with chest pressure worse with deep breath and ANTON
-ECG without ischemia. CXR mild diffuse interstitial prominence may reflect pulmonary interstitial edema and/or pneumonitis. Cannot rule out underlying chronic interstitial lung disease.
-Abnormal troponin, peak 1.80 on admission, suspect non-ischemia injury from recent ablation
-Suspect chest pressure is secondary to recent ablation. Will try IV Toradol x 1. Also could consider colchicine pending echo
-Echo pending
-If echo unremarkable. Consider outpatient stress test once he has recovered from ablation as pt did have coronary calcification on pre-TAVR CT
-If echo stable without effusion, stop heparin and resume Eliquis.
-Agree with gentle IV diuresis given recent ablation
-Replete K+ and magnesium
Plan discussed with patient, nursing, hospitalist
HPI 04/01/2025:
Patient is a 74-year-old male with past medical history significant for hypertension, hyperlipemia, diabetes mellitus, asthma, chronic heart failure, and atrial fibrillation with PVI ablation on Mar 29 who presents with chest pressure/tightness
and shortness of breath. Patient reports he felt good following ablation however on Tuesday developed chest pressure within 24 hours discomfort intensified and had difficulty taking a deep breath and noted feeling more short of breath with walking
up steps. Reports tightness/discomfort is constant. Not worsened with activity. He does admit that he has had chronic dyspnea on exertion but seems a little worse. EKG showed sinus rhythm without ischemic changes. Initial troponin 1.8 then
downward trended. Chest x-ray mild diffuse interstitial prominence may reflect pulmonary interstitial edema and/or pneumonitis. Trace pericardial effusions. Cannot rule out underlying chronic interstitial lung disease. proBNP 345.
Patient continues to chest pressure/tightness worse with taking deep breaths. Not exertional related.
Data Reviewed
-
EKG: Report Reviewed by me, Discussed with Physician, Discussed with Nurse and Discussed with Patient
Radiology: Report Reviewed by me, Discussed with Physician, Discussed with Nurse and Discussed with Patient
Labs: Labs Reviewed by me, Discussed with Physician, Discussed with Nurse and Discussed with Patient
Old Records: Reviewed
[2025-04-01] MEDS: PROTONIX 40 MG PO (09:02)
[2025-04-01] MEDS: ZOLOFT 75 MG PO (09:02)
[2025-04-01] MEDS: TOPROL XL 50 MG PO (09:02)
[2025-04-01] MEDS: LOW STRENGTH ASPIRIN 81 MG PO (09:02)
[2025-04-01] MEDS: TORADOL 30 MG IV (09:05)
[2025-04-01] MEDS: LASIX 20 MG IV (09:05)
[2025-04-01] MEDS: FLUSH (NSS) 1 FLUSH IV (09:05)
[2025-04-01 09:17] LABS: Glucose - Point of Care 113 mg/dl (70-99)
[2025-04-01] MEDS: NOVOLOG FLEXPEN-LOW RESISTANCE SC ×3 (09:17→16:44)
--- NOTE | 2025-04-01 09:36 | PTCARENOTE ---
Patient resting in bed, IV heparin infusing per protocol. Denies any chest pain at rest, but does state he has some discomfort when he takes a deep breath. Echo done at the bedside, patient given IV toradol as ordered, remains NPO pending further
orders, call franco in reach.
[2025-04-01 10:20] LABS: Glycohemoglobin (HgbA1c) 6.2 % (4.0-5.6)
[2025-04-01 10:24] LABS: APTT 62.8 Sec (23.4-35.0)
--- NOTE | 2025-04-01 10:27 | CM ---
Reviewed chart. Met with Mr. Zabala to review discharge plans. He states prior to admission he resides with his spouse and son in a two story with six steps to enter. He states he has a full flight of steps to get to bedroom/full bathroom. He states
he has a powder room on the first floor. He states prior to admission he was independent with ambulation and adls. He states he has a Bi-pap Machine at home. He states he has a prescription plan and uses [facility]. Medical work-up in
progress. The discharge plan is to return home with his spouse and son when medically stable.
[2025-04-01] MEDS: COLCHICINE 0.6 MG PO (12:58)
[2025-04-01 13:30] LABS: Glucose - Point of Care 99 mg/dl (70-99)
--- NOTE | 2025-04-01 15:23 | W.PN.HOSP.TC ---
Today's Communication/Plan
-
Colchicine
PE series
Switch to Eliquis tonight
Assessment / Plan
Assessment / Plan
GEN: No distress, awake, Ox3, sitting in bed
HEENT: supple, anicteric, mmm
LUNGS: CTA, no wheezes/rales
CV: Reg, S1/S2, no murmur, rub, gallop
ABD: soft, BS+, NT/ND
EXT: No edema, clubbing cyanosis
NEURO: Gross non-focal
SKIN: No rash, warm, dry, pink
Chest Pain / Shortness of Breath with Elevated Troponin
-complains it is pleuretic
� Most likely related to pericardial inflammation
-Unlikely ACS given presentation features
�Most likely secondary to pulsed field ablation
� Troponins downtrending
� Echo with no wall motion abnormality
� EKG unremarkable for acute changes
� With trace pleural effusions and slight elevated BNP, gentle IV diuresis
-Chest CT PE study
-Incentive tonio
#Volume overload
-gentle diuresis
Normocytic Anemia
-Hgb dropped from 14 earlier this month to 11.7
unclear baseline
-ctm
-outpt screening
Paroxysmal Atrial Fibrillation s/p PVI Ablation on Mar 29
-Continue metoprolol for rate control
-hep ggt - can resume eliquis tonight
Chronic HFpEF
-Continue Lasix
-Monitor Is&Os and Daily Weights
Diabetes Mellitus, Type II - Diet Controlled
-Check HgbA1c
-Monitor sugars and continue coverage insulin
Essential Hypertension
-Hold losartan as BP is running on the low side
Hyperlipidemia
-Continue atorvastatin
Asthma / Reactive Airway Disease
-Continue arformoterol, budesonide and Yupelri
Anxiety / Depression
-Continue sertraline
Obstructive Sleep Apnea
-Continue BiPAP
Morbid Obesity due to Excess Calories
-Affects all aspects of care
DVT Proph: Heparin Drip to eliquis
Code Status: Full Code
Total time spent on today's encounter was 51 minutes which included time spent in counseling the patient/family regarding diagnosis and treatment plan as listed above, goals of care, and symptom management. Case was discussed with nursing staff,
specialists, and care coordinators/case management. All labs and imaging personally reviewed by me. Remainder the time spent in detailed review of previous records, lab data, imaging, and other medical provider documentation.
Anticipated Discharge: Today
Subjective/Interval History
-
Date of Service: April 01, 2025
Chest tightness persist despite Toradol
Objective Data
-
Labs:
Laboratory Results
04/01/25 04/01/25 04/01/25
02:34 09:57 16:45
APTT 54.5 H 62.8 H Pending
Sodium 137
Potassium 3.5
Chloride 107
Carbon Dioxide 25
BUN 16
Creatinine 0.8
Glucose 111 H
Calcium 8.4
Vital Signs:
Vital Signs
Temp Pulse Resp BP Pulse Ox
98.3 F 63 16 125/74 96
04/01/25 11:17 04/01/25 15:20 04/01/25 15:20 04/01/25 11:16 04/01/25 15:20
Review of Systems
-
History Source: Patient
All other systems: Not reviewed unless documented
Data Reviewed
-
Diagnostic Radiology: Report Reviewed by me
Labs: Labs Reviewed by me
[2025-04-01 16:42] LABS: Glucose - Point of Care 142 mg/dl (70-99)
[2025-04-01 17:06] LABS: APTT 82.3 Sec (23.4-35.0)
[2025-04-01] MEDS: HEPARIN 25000 UNITS/250 ML IV (17:30)
[2025-04-01] MEDS: LIPITOR 20 MG PO (17:57)
--- NOTE | 2025-04-01 18:36 | PTCARENOTE ---
Patient for CT PE protocol, pre-medication ordered to start doses tonight. Spoke with [place] in [place] and plan for CT at 0900 after oral prep. Patient to restart PO eliquis and d/c IV heparin at 1999.
[2025-04-01] MEDS: ELIQUIS 5 MG PO (19:55)
[2025-04-01] MEDS: DELTASONE 50 MG PO (19:55)
[2025-04-01 22:36] LABS: Glucose - Point of Care 122 mg/dl (70-99)
[2025-04-01] MEDS: SINGULAIR 10 MG PO (22:37)
--- NOTE | 2025-04-01 23:36 | PTCARENOTE ---
Received patient at change of shift. SR on the monitor, HR in the 60s. Heparin stopped at 20:00 as per order, see documentation. No complaints from pt at this time, call franco within reach.
[2025-04-02 00:08] VITALS: PULSE 2
[2025-04-02 02:18] VITALS: BP 113/70
[2025-04-02] MEDS: DELTASONE 50 MG PO ×2 (02:18→08:08)
[2025-04-02 03:33] LABS: Hematocrit 33.1 % (39.0-52.0); Hemoglobin 11.4 g/dL (13.0-18.0); Mean Corp Hgb Conc. 34.4 g/dL (33.0-37.0); Mean Corpuscular Volume 88.7 fL (80.0-94.0); Platelet Count 170 10^3/uL (130-400); Red Cell Dist. Width 13.6 % (11.5-14.5)
[2025-04-02 03:55] LABS: ALT (SGPT) 22 U/L (0-50); AST (SGOT) 22 U/L (17-59); Albumin 3.8 g/dl (3.5-5.0); Alkaline Phosphatase 80 U/L (38-126); Blood Urea Nitrogen 14 mg/dl (9-20); Calcium 8.6 mg/dl (8.4-10.2); Carbon Dioxide 22 mmol/L (22-30); Chloride 108 mmol/L (98-107); Estimated Creatinine Clearance 124 ml/min; Glucose 169 mg/dl (70-99); Potassium 4.3 mmol/L (3.5-5.1); Sodium 137 mmol/L (135-145); Total Protein 6.2 g/dl (6.3-8.2); eGFR > 60.00
[2025-04-02 04:15] VITALS: PULSE 2
[2025-04-02 05:09] VITALS: BMI 41.1
[2025-04-02 07:08] VITALS: BP 158/92
[2025-04-02 07:12] LABS: Glucose - Point of Care 181 mg/dl (70-99)
[2025-04-02] MEDS: SPIRIVA RESPIMAT 2.5 MCG 2 PUFF INH (07:52)
[2025-04-02] MEDS: PULMICORT 0.5 MG INH (07:52)
[2025-04-02] MEDS: VENTOLIN NEBULES 2.5 MG INH ×2 (07:52→11:49)
[2025-04-02] MEDS: ELIQUIS 5 MG PO (08:08)
[2025-04-02] MEDS: BENADRYL 50 MG IV (08:08)
[2025-04-02] MEDS: PROTONIX 40 MG PO (08:09)
[2025-04-02] MEDS: LOW STRENGTH ASPIRIN 81 MG PO (08:09)
[2025-04-02] MEDS: TOPROL XL 50 MG PO (08:09)
[2025-04-02] MEDS: ZOLOFT 75 MG PO (08:09)
[2025-04-02] MEDS: FLUSH (NSS) 2 FLUSH IV (08:11)
--- NOTE | 2025-04-02 08:12 | W.PN.CARDCBS ---
Addendum entered and electronically signed by Umang Fink MD 04/02/25 10:36:
Attending addendum: Patient seen and examined. PA note reviewed and findings independently confirmed by me. Mr. Zabala states that his shortness of breath really got worse in Feb 2025 and he has been using his albuterol rescue inhaler 4x daily.
Symptoms really got worse in Mar after his hebrew cantor stopped Breztri. I would guess that intubation for the procedure may have made this a little worse. Nothing stands out from cardiac standpoint.
CT Chest : No PE and small bilateral pleural effusions and atelectasis
PE:
Gen: awake, conversant, sitting in chair
Lungs: Clear no wheezing. Cough with expiration
CV: RRR
Ext: Changes of chronic venous stasis
Plan:
-Symptoms of shortness of breath sound much more chronic to me. He states that since Feb he has been much more short of breath using his albuterol inhaler 4x daily and that there have been multiple iterations of inhalers over the past several weeks
and that Breztri became cost prohibitive.
-I am more doubtful that there is an obvious cardiac etiology for his symptoms. If anything, I think discussions with his hebrew cantor or pulmonary consult at this time is most appropriate to determine what he has been tried on and what we should
do going forward. I spoke with Dr. Dunn
-Will sign off . Would probably not use colchicine for more of a chronic issue
Original Note:
Today's Communication / Plan
-
Continue Eliquis
CT of chest today
Continue steroids, nebulizers per primary service
Impression / Plan
-
PCP: Paz Jones
Environmental Compliance Inspector: Dr. Bernard
EP: Dr. Stark
Impression:
Presents 03/31/2025 with chest pressure worse with deep breath
ANTON
Abnormal troponin, suspect non-ischemia injury from recent ablation
Paroxysmal Atrial Fibrillation
s/p PVI Ablation 03/29/2025
Chronic anticoagulation with Eliquis
Chronic HFpEF
Diabetes Mellitus, Type II
Essential Hypertension
Hyperlipidemia
Asthma / Reactive Airway Disease
Pulmonary Embolism
Anxiety / Depression
GERD
Gilbert's
Prostate Cancer
Obstructive Sleep Apnea
Morbid Obesity due to Excess Calories
Echo 04/22/2021: EF 50-55%, mod LVH, no significant valve disease
Echo 04/01/2025: EF 61%. Mild concentric LVH. Stage III DD. Moderately dilated LA (42-48 ml/m2). Mild mitral regurgitation. No evidence of pericardial or pleural effusion.
Plan:
-Presents 03/31/2025 with chest pressure worse with deep breath and ANTON. He had Pulse field PVI 03/29/2025.
ECG without ischemia in ED and during admission. CXR mild diffuse interstitial prominence may reflect pulmonary interstitial edema and/or pneumonitis. Cannot rule out underlying chronic interstitial lung disease.
Abnormal troponin, peak 1.80 on admission then continued to trend downward. Suspect non-ischemia injury from recent Pulse field PVI 03/29/2025 ablation.
Echo 04/01/2025 with no evidence of pericardial effusion with preserved ejection fraction.
Patient was provided 1 dose of 30 mg IV Toradol 04/01/2025 without significant improvement. Later that day given colchicine with minimal changes in symptoms. Symptoms now appearing to be possibly pulmonary in nature. Would hold on giving
additional doses of NSAIDs or colchicine at this time
Heparin drip discontinued and patient now back on Eliquis. Should be on uninterrupted Eliquis for 3 months post ablation
-He has a longstanding history of asthma and possibly interstitial lung disease. Continues to complain of difficulty taking breath with mild tightness and cough
Patient reporting after he was provided IV steroids and nebulizer treatment which seemed to have helped.
Chest disc comfort and difficulty taking deep breath may be related to chronic pulmonary disease which was worsened in setting of recent anesthesia. Continue steroids and nebulizer, encouraged IS
Primary service has ordered CT of chest to rule out PE given temporary hold of anticoagulation for ablation
Patient would likely benefit from formal pulmonary toilet evaluation as outpatient
-Ongoing gentle diuresis following ablation.
Weight down a few pounds and appears to be back to baseline
Stable renal function and electrolytes
Patient was not on diuretic prior to admission
Plan discussed with patient, nursing, hospitalist
HPI 04/01/2025:
Patient is a 74-year-old male with past medical history significant for hypertension, hyperlipemia, diabetes mellitus, asthma, chronic heart failure, and atrial fibrillation with PVI ablation on Mar 29 who presents with chest pressure/tightness
and shortness of breath. Patient reports he felt good following ablation however on Tuesday developed chest pressure within 24 hours discomfort intensified and had difficulty taking a deep breath and noted feeling more short of breath with walking
up steps. Reports tightness/discomfort is constant. Not worsened with activity. He does admit that he has had chronic dyspnea on exertion but seems a little worse. EKG showed sinus rhythm without ischemic changes. Initial troponin 1.8 then
downward trended. Chest x-ray mild diffuse interstitial prominence may reflect pulmonary interstitial edema and/or pneumonitis. Trace pericardial effusions. Cannot rule out underlying chronic interstitial lung disease. proBNP 345.
Patient continues to chest pressure/tightness worse with taking deep breaths. Not exertional related.
Progress Note - Environmental Compliance Inspector
Subjective
Date of Service: April 02, 2025
Patient seen and examined. Patient reports still feels like he cannot get a deep breath then without coughing.
Objective
Labs:
04/02/25 02:24
04/02/25 02:24
Labs
Hgb 11.4 g/dL (13.0-18.0) L 04/02/25 02:24
Hct 33.1 % (39.0-52.0) L 04/02/25 02:24
Plt Count 170 10^3/uL (130-400) 04/02/25 02:24
APTT 82.3 Sec (23.4-35.0) H 04/01/25 16:38
Sodium 137 mmol/L (135-145) 04/02/25 02:24
Potassium 4.3 mmol/L (3.5-5.1) 04/02/25 02:24
BUN 14 mg/dl (9-20) 04/02/25 02:24
Creatinine 0.7 mg/dL (0.7-1.3) 04/02/25 02:24
Glucose 169 mg/dl (70-99) H 04/02/25 02:24
Troponins
03/31/25 03/31/25 04/01/25
18:48 22:06 02:34
Troponin I 1.810 H* 1.750 H* 1.300 H* D
04/01/25
09:50
Troponin I Cancelled
Vital Signs and I&O:
Vital Signs
Temp Pulse Resp BP Pulse Ox
98.4 F 56 20 158/92 98
04/02/25 07:08 04/02/25 07:45 04/02/25 07:08 04/02/25 07:08 04/02/25 07:08
Vital Signs
Temp Pulse Resp BP Pulse Ox
98.4 F 56 20 158/92 98
04/02/25 07:08 04/02/25 07:45 04/02/25 07:08 04/02/25 07:08 04/02/25 07:08
Intake & Output
03/31/25 04/01/25 04/02/25 04/03/25
06:59 06:59 06:59 06:59
Intake Total 480 / 480
Balance 480 / 480
Physical Exam
Physical Exam
GEN: No distress, awake, Ox3, sitting in chair
HEENT: supple, anicteric, mmm
LUNGS: Reproducible coughing when attempting to take deep breath, mildly diminished breath sounds bilaterally, no wheezes/rales; on room air
CV: Reg, S1/S2, no murmur, rub or gallop
ABD: soft, BS+, NT/ND
EXT: No edema, clubbing or cyanosis
NEURO: Gross non-focal
SKIN: No rash, warm, dry, pink
[2025-04-02] MEDS: NOVOLOG FLEXPEN-LOW RESISTANCE 1 UNITS SC ×2 (08:54→11:54)
--- NOTE | 2025-04-02 09:05 | PTCARENOTE ---
Patient still saying he has difficulty taking a deep breath but no chest pain. Given pre medication for CT and department notified, scheduled for 0900, transport called.
[2025-04-02 10:46] VITALS: BP 115/71
[2025-04-02] MEDS: LASIX 20 MG IV (10:46)
[2025-04-02 11:43] LABS: Glucose - Point of Care 195 mg/dl (70-99)
--- NOTE | 2025-04-02 11:46 | CON.PUL ---
Consultation
Consultation Request
Date/Time Consultation Requested: 04/02/2025
Date/Time Consultation Performed: 04/02/2025
Requesting Provider: Dr. Dunn
Performing Provider: Dr. Omega Sykes
Reason for Consultation: Acute hypoxemic respiratory failure/COPD exacerbation
Medical History
-
History of Present Illness:
74-year-old male with past medical history significant for hypertension, type 2 diabetes, asthma, atrial fibrillation status post PVI ablation 03/29/2025-presented to the emergency room on 03/31/2025 complaining of chest pain, shortness of breath and
chest pressure.
Denies cough, wheezing or phlegm production.
Troponin on admission was 1.[address] of the chest pulmonary embolism protocol negative for acute abnormalities. Small bilateral pleural effusions with compressive atelectasis.
-
In further questioning his pest control pilot recently transition from Breztri to nebulized therapy. Has been using albuterol more frequently on a daily basis.
The cost of Breztri became prohibitive thus why he was transition to nebulized therapy.
Cardiac evaluation so far unrevealing-mild troponin leak per cardiology related to recent PVI.
Symptoms appear to be more chronic in nature. Not related to recent procedure.
-
He was intubated for the procedure-unclear whether these cause some degree of exacerbation.
Denies any active respiratory symptoms including cough, wheezing or phlegm production
Does report shortness of breath that has been escalating since February. He has been mostly sedentary due to atrial fibrillation
Continues to report persistent acid reflux symptoms
No oxygen requirement
He has been compliant with BiPAP therapy
Past Medical History
Past Medical History: Other (See assessment and plan)
Social History
Tobacco: Non-smoker
Alcohol: None
Drug: None
Family History
Family History: Reviewed & Not Pertinent
Allergies / Home Medications
Allergies
Allergy/AdvReac Type Severity Reaction Status Date / Time
adhesive Allergy BLISTERS Verified 03/31/25 18:32
bee venom protein (honey bee) Allergy EDEMA Verified 03/31/25 18:32
codeine Allergy CHEST Verified 04/01/25 15:37
PAIN/
GA-LIKE/CARDIAC
SYMPTOMS
erythromycin base Allergy RENAL Verified 04/01/25 15:37
FAILURE/SEVERE
N/V
Iodinated Contrast Media Allergy Hives Verified 04/01/25 15:37
levofloxacin Allergy PRURITUS Verified 03/31/25 18:32
Opioids - Morphine Analogues Allergy CHEST Verified 03/31/25 18:32
PAIN/GA-LIKE/CARDIAC
SYMPTOMS
Home Medications
�Medication �Instructions �Recorded �Confirmed �Last Taken �Type
amoxicillin 500 mg capsule 2,000 mg PO PRN PRN PRE-DENTAL 03/08/25 03/31/25 02/07/25 08:00 History
VISIT
apixaban 5 mg tablet (Eliquis) 5 mg PO BID Blood Clot 03/08/25 03/31/25 03/28/25 20:00 History
Prevention/Tx
arformoterol 15 mcg/2 mL solution 15 mcg inhalation BID 03/08/25 03/31/25 03/28/25 20:00 History
for nebulization Lung/Breathing Issues
atorvastatin 20 mg tablet 20 mg PO QPM High Cholesterol 03/08/25 03/31/25 03/28/25 20:00 History
budesonide 0.5 mg/2 mL suspension 0.5 mg inhalation BID 03/08/25 03/31/25 03/28/25 20:00 History
for nebulization Lung/Breathing Issues
calcium 600 mg (as 1 tab PO DAILY Supplement 03/08/25 03/31/25 03/28/25 08:00 History
carbonate)-vitamin D3 20 mcg (800
unit) tablet
furosemide 20 mg tablet (Lasix) 20 mg PO DAILY Fluid 03/08/25 03/31/25 03/28/25 08:00 History
Retention/Swelling
losartan 25 mg tablet 25 mg PO DAILY Blood Pressure 03/08/25 03/31/25 03/28/25 08:00 History
mecobalamin (vitamin B12) 1,000 1,000 mcg PO DAILY Supplement 03/08/25 03/31/25 03/28/25 08:00 History
mcg chewable tablet
metoprolol succinate 50 mg 50 mg PO DAILY Blood Pressure 03/08/25 03/31/25 03/28/25 08:00 History
tablet,extended release 24 hr
montelukast 10 mg tablet 10 mg PO HS Lung/Breathing Issues 03/08/25 03/31/25 03/28/25 20:00 History
multivit,Ca,min-iron 8 mg-folic 1 tab PO DAILY Supplement 03/08/25 03/31/25 03/28/25 08:00 History
acid 200 mcg-lycopene 600 mcg
tablet (Men's Daily Multivitamin)
pantoprazole 40 mg tablet,delayed 40 mg PO DAILY Gastrointestinal 03/08/25 03/31/25 03/28/25 08:00 History
release Issue
revefenacin 175 mcg/3 mL solution 175 mcg inhalation DAILY 03/08/25 03/31/25 03/28/25 08:00 History
for nebulization (Yupelri) Lung/Breathing Issues
sertraline 50 mg tablet 75 mg PO DAILY Mental 03/08/25 03/31/25 03/28/25 08:00 History
Health/Anxiety
tadalafil 20 mg tablet (Cialis) 20 mg PO DAILYPRN PRN ED 03/08/25 03/31/25 03/11/25 08:00 History
Review of Systems
-
History Source: Patient
All other systems: Negative unless noted
Vitals / Labs / Diagnostic Testing
Vital Signs
Temp Pulse Resp BP Pulse Ox
97.6 F 56 20 115/71 95
04/02/25 11:39 04/02/25 10:46 04/02/25 10:50 04/02/25 10:46 04/02/25 10:50
Lab Data
04/02/25 02:24
04/02/25 02:24
Laboratory Results
04/01/25
16:38
APTT 82.3 H
Diagnostic Testing:
Physical Exam
-
HEENT: Normocephalic
Cardiovascular: S1/S2 and Regular Rhythm
Respiratory: Clear and Other (Prolonged expiratory phase)
GI: Soft and Distended (Obese)
Neurology: Awake, Alert and No Motor Deficits
Skin: Warm
General: Comfortable
Assessment
-
Atypical chest pain/shortness of breath
CT chest 03/31/2025: No pulmonary embolism. Small bilateral pleural effusions with subsegmental atelectasis. No aortic dissection.
proBNP in the 300s
Mild troponin leak in the setting of recent PVI
History of asthma: Chronic shortness of breath, uncontrolled symptoms are recently since February.
Conditions present prior admission:
Hypertension
Generalized anxiety disorder
Obstructive sleep apnea on BiPAP therapy
Moderate persistent asthma-no spirometry available-does not follow-up locally
On montelukast/budesonide/formoterol/Yupelri
Psoriasis
AVMs of the colon
Chronic arthritis
Atrial fibrillation
Previous DC cardioversion 12/2024-normal LVEF. Normal right ventricular size.
Assessment and plan:
From the pulmonary perspective: There is no pulmonary function testing available to determine whether the patient has fixed airflow obstruction.
On CAT scan: No evidence for emphysema or significant interstitial lung disease. There is right lateral small pleural effusion-? Suggest more volume overload.
There is no evidence for interstitial lung disease-he does have hypoventilatory changes/subsegmental atelectasis bibasilar.
-
He will need to receive a CT of the chest once pleural effusion is resolved-
-
Patient does have history of asthma Since childhood-follows up with .
-
Symptoms have been worsening over the last several months-recently his pest control pilot switched him to nebulized therapy due to high cost of Breztri which was working well..
Patient states that he has not been able to be physically active for the last 3 to 4 weeks after he was diagnosed with atrial fibrillation.Deconditioning likely playing a role
Obesity also playing a role
-
Not unreasonable to provide the patient with a short course of prednisone 40 mg X 2days, 30 mg X 2 days and 20 mg X 2 daysAnd then 10 for 2 days, to determine whether this will make a difference on his asthma.Advised him to report back to his
pest control pilot regarding response to steroids.
Unclear whether he will be a candidate for biologic therapy.
-
If this is the case and he continues to be symptomatic we will need to discuss triggers/this could be investigated in the outpatient setting.
He does report uncontrolled GERD-discussed lifestyle modifications. Antiacids.
Weight loss strongly recommended as likely will improve asthma control and symptoms as well-he may be a candidate for GLP 1 agonist.
Certainly here in the hospital there is no evidence for peripheral eosinophilia.
Continue montelukast.
-
Cardiology correspondence reviewed: No additional recommendations offered.Case discussed with Dr. Cano.
Advised patient to monitor heart rate at home to assure proper heart rate response with ambulation.
Do not feel that symptoms are cardiac driven.
-
Obstructive sleep apnea-should continue nocturnal BiPAP.
Weight loss also may be helpful with respiratory symptoms and asthma control.
-
I would recommend the patient to follow-up back with his pulmonary doctor for further evaluation in the outpatient setting.
No additional recommendations in the inpatient setting
Case discussed with primary team
Okay to discharge from my perspective
Sign off
-
--- NOTE | 2025-04-02 13:27 | W.PN.HOSP.TC ---
Addendum entered and electronically signed by Rodrigo Dunn MD 04/02/25 14:57:
[id number]
Original Note:
Today's Communication/Plan
-
Pred taper
ASA 81
resume po lasix
F/u Cards, Pulmonary, PCP outpt
Weight Loss
ambulation
Assessment / Plan
Assessment / Plan
GEN: No distress, awake, Ox3, sitting in bed
HEENT: supple, anicteric, mmm
LUNGS: CTA, no wheezes/rales
CV: Reg, S1/S2, no murmur, rub, gallop
ABD: soft, BS+, NT/ND
EXT: No edema, clubbing cyanosis
NEURO: Gross non-focal
SKIN: No rash, warm, dry, pink
Atypical Chest Pain / Shortness of Breath with Elevated Troponin
-complains it is pleuritic
-I suspect secondary to asthma/COPD overlap that has been likely uncontrolled along with the recruitment after intubation with subsequent extubation and deconditioning causing atelectasis; Further, obesity likely contributor as well
� Improved with steroids
� Pulmonary consulted
� 40 mg prednisone taper, drop in 10 mg every 2 days
� Engage with pulmonary outpatient to assess if further regimen is required
-Unlikely ACS given presentation features although with elevated trop, cont asa 81mg
� With trace pleural effusions and slight elevated BNP, gentle IV diuresis - can go back on po lasix
-Chest CT PE study - grossly unremarkable
-Incentive tonio
#Volume overload
-gentle diuresis
-can go back on po lasix
Normocytic Anemia
-Hgb dropped from 14 earlier this month to 11.7
unclear baseline
-ctm
-outpt screening
Paroxysmal Atrial Fibrillation s/p PVI Ablation on Mar 29
-Continue metoprolol for rate control
Eliquis
Chronic HFpEF
-Continue Lasix
-Monitor Is&Os and Daily Weights
Diabetes Mellitus, Type II - Diet Controlled
-Check HgbA1c
-Monitor sugars and continue coverage insulin
Essential Hypertension
Losartan
Hyperlipidemia
-Continue atorvastatin
Asthma / Reactive Airway Disease
-Continue arformoterol, budesonide and Yupelri
Anxiety / Depression
-Continue sertraline
Obstructive Sleep Apnea
-Continue BiPAP
Morbid Obesity due to Excess Calories
-Affects all aspects of care
DVT Proph: eliquis
Code Status: Full Code
More than 30 minutes spent in discharge including
Final examination of the patient
Summarizing hospital stay
Instructions for continuing care to all relevant caregivers
Preparation of discharge records, prescriptions, and referral forms
Total time spent (in minutes): 36
Anticipated Discharge: Today
Subjective/Interval History
-
Date of Service: April 02, 2025
improvement in respiratory symptoms s/p steroids
Objective Data
-
Labs:
Laboratory Results
04/02/25
02:24
WBC 8.0
Hgb 11.4 L
Hct 33.1 L
Plt Count 170
Sodium 137
Potassium 4.3
Chloride 108 H
Carbon Dioxide 22
BUN 14
Creatinine 0.7
Glucose 169 H
Calcium 8.6
Total Bilirubin 2.8 H
AST 22
ALT 22
Alkaline Phosphatase 80
Vital Signs:
Vital Signs
Temp Pulse Resp BP Pulse Ox
97.6 F 62 18 115/71 95
04/02/25 11:39 04/02/25 11:51 04/02/25 11:51 04/02/25 10:46 04/02/25 11:51
I&O
04/01/25 04/02/25 04/03/25
06:59 06:59 06:59
Intake Total 480 / 480
Balance 480 / 480
Review of Systems
-
History Source: Patient
All other systems: Not reviewed unless documented
Data Reviewed
-
Diagnostic Radiology: Report Reviewed by me
CT Scan: Report Reviewed by me
Labs: Labs Reviewed by me
--- NOTE | 2025-04-02 13:33 | W.DS.TRANS ---
DC Summary - Ski Instructor
-
Discharge Instructions:
Discharge Diagnosis/Procedures
Atypical chest pain/shortness of breath
Diet Low Cholesterol,Low Fat
Activity As tolerated
Blood Work cbc and cmp in 1 week with pcp
Instructions:
Stand-Alone Forms:
Changes to Home Medications: Yes
Discharge Medications:
DC Medications w/original date entered in [employer]
amoxicillin 500 mg capsule 2,000 mg PO PRN PRN PRE-DENTAL VISIT 03/08/25
apixaban 5 mg tablet (Eliquis) 5 mg PO BID Blood Clot Prevention/Tx 03/08/25
arformoterol 15 mcg/2 mL solution for nebulization 15 mcg inhalation BID Lung/Breathing Issues 03/08/25
atorvastatin 20 mg tablet 20 mg PO QPM High Cholesterol 03/08/25
budesonide 0.5 mg/2 mL suspension for nebulization 0.5 mg inhalation BID Lung/Breathing Issues 03/08/25
calcium 600 mg (as carbonate)-vitamin D3 20 mcg (800 unit) tablet 1 tab PO DAILY Supplement 03/08/25
furosemide 20 mg tablet (Lasix) 20 mg PO DAILY Fluid Retention/Swelling 03/08/25
losartan 25 mg tablet 25 mg PO DAILY Blood Pressure 03/08/25
mecobalamin (vitamin B12) 1,000 mcg chewable tablet 1,000 mcg PO DAILY Supplement 03/08/25
metoprolol succinate 50 mg tablet,extended release 24 hr 50 mg PO DAILY Blood Pressure 03/08/25
montelukast 10 mg tablet 10 mg PO HS Lung/Breathing Issues 03/08/25
multivit,Ca,min-iron 8 mg-folic acid 200 mcg-lycopene 600 mcg tablet (Men's Daily Multivitamin) 1 tab PO DAILY Supplement 03/08/25
pantoprazole 40 mg tablet,delayed release 40 mg PO DAILY Gastrointestinal Issue 03/08/25
revefenacin 175 mcg/3 mL solution for nebulization (Yupelri) 175 mcg inhalation DAILY Lung/Breathing Issues 03/08/25
sertraline 50 mg tablet 75 mg PO DAILY Mental Health/Anxiety 03/08/25
tadalafil 20 mg tablet (Cialis) 20 mg PO DAILYPRN PRN ED 03/08/25
aspirin 81 mg chewable tablet 81 mg PO DAILY 30 days #30 tabs 04/02/25
prednisone 10 mg tablet See Rx Instructions .Route .COMPLEX #20 tabs 04/02/25
Home Medication Changes
aspirin 81 mg chewable tablet 81 mg PO DAILY 30 days #30 tabs 04/02/25
prednisone 10 mg tablet See Rx Instructions .Route .COMPLEX #20 tabs 04/02/25
Pending Results: No
--- NOTE | 2025-04-02 14:16 | PTCARENOTE ---
Patient seen by cardiology and is ok for discharge, follow up appointment made with Dr. Bernard. Pulmonary saw the patient and patient is now cleared for discharge. Reviewed discharge instructions, prescriptions, lab work ordered and follow up
appointments and he states his understanding. Patient discharged home with his .
--- NOTE | 2025-04-02 14:37 | CM ---
Reviewed chart. Prior to admission he resides with his spouse and son in a two story with six steps to enter. He has a full flight of steps to get to bedroom/full bathroom. He has a powder room on the first floor. Prior to admission he was
independent with ambulation and adls. He has a Bi-pap Machine at home. He has a prescription plan and uses [facility]. Medical work-up in progress. The discharge plan is to return home with his spouse and son when medically stable.
== END 2025-04-02 14:17 | disposition home or self-care (01) | DRG 187 ==
LOC: IVU 20:55
PROVIDERS: Emergency Medicine; Physician Assistant Medical; ADMITTING PHYSICIAN Hospitalist; ATTENDING PHYSICIAN Internal Medicine; CONSULT PHYSICIAN Internal Medicine Critical Care Medicine; EMERGENCY PHYSICIAN Emergency Medicine; OTHER PHYSICIAN Internal Medicine Cardiovascular Disease
PROC: 5A09357 Assistance with Respiratory Ventilation, Less than 24 Consecutive Hours, Continuous Positive Airway Pressure (ICD-10-PCS; 2025-03-31)
DX: J90 Pleural effusion, not elsewhere classified (principal); I50.32 Chronic diastolic (congestive) heart failure; I5A Non-ischemic myocardial injury (non-traumatic); J98.11 Atelectasis; Z68.41 Body mass index [BMI] 40.0-44.9, adult; J44.89 Other specified chronic obstructive pulmonary disease; I11.0 Hypertensive heart disease with heart failure; I48.0 Paroxysmal atrial fibrillation; D64.9 Anemia, unspecified; E11.9 Type 2 diabetes mellitus without complications; F32.A Depression, unspecified; F41.1 Generalized anxiety disorder; E66.01 Morbid (severe) obesity due to excess calories; G47.33 Obstructive sleep apnea (adult) (pediatric); E78.00 Pure hypercholesterolemia, unspecified; J45.40 Moderate persistent asthma, uncomplicated; K21.9 Gastro-esophageal reflux disease without esophagitis; M19.90 Unspecified osteoarthritis, unspecified site; Z79.899 Other long term (current) drug therapy; Z79.01 Long term (current) use of anticoagulants; Z79.51 Long term (current) use of inhaled steroids; Z11.52 Encounter for screening for COVID-19
CPT/HCPCS: 71046; 71275; 80048; 80053; 80061; 82607; 82728; 82746; 82962; 83036; 83540; 83550; 83735; 83880; 84484; 85025; 85027; 85730; 86900; 86901; 87811; 93005; 93306; 94640; 94660; 96374; 96376; 99285; Q9967